=== PATIENT | female | born 1995 | race Two or more races ===

== ENCOUNTER 2019-04-29 21:50 | Emergency (ER) | payer MEDICAID, OTHER ==
[~2019-04-29] VITALS: Ht 167.6 cm; Wt 61.2 kg
[~2019-04-29 21:50] MED LIST: IBUP-1953 PO
--- NOTE | 2019-04-29 22:35 | NUR ---
Patient is AOx4, speaking in complete sentences, speech is clear. Able to follow /comprehend directions. Gait is stable. No cardiovascular distress noted. Rate/rhythm regular. No CP. No respiratory distress noted. Respirations even , unlabored, symmetrical chest rise. No adventitious sounds noted. Chief complaint: Patient comes in C/O SORETHROAT AFTER ACCIDENTALLY INGESTING DE[place]AYNE THAT FELL ON PIZZA TODAY. Denies Fever/Chills. No recent travel. +TONSILLECTOMY 3YR/O, +HEP C/NKDA. + ETOH/ +recreational drug use/ +5cigarettes per day. SAFETY Patient in bed, bed in lowest position. Siderails up x 2. Call light within reach. Will continue to monitor accordingly Pt denies fever chills headache dyspnea chest pain nausea vomiting diarrhea dysuria HEAD Denies hitting head, LOC, diplopia, worsening headache, balance problems vertigo/dizziness, difficulty concentrating, photophobia, phonophobia, nausea, vomiting HEART hx of HTN DM CAD, denies hx of chest pain or sensation of tightness, SOB, no report of copious diaphoresis, denies shooting pains into left arm or jaw
[2019-04-29 23:09] LABS: *URINE HCG, QUAL NEGATIVE (NEGATIVE)
--- NOTE | 2019-04-30 00:22 | NUR ---
Patient discharged to home in stable conditon. Written and verbal after care instructions given. Patient verbalizes understanding of instructions.
[2019-04-30 00:24] VITALS: BP 113/61
== END 2019-04-30 00:25 | disposition home or self-care (01) ==
LOC: ER 21:55
DX: J02.9 Acute pharyngitis, unspecified (principal); F17.200 Nicotine dependence, unspecified, uncomplicated; Z90.89 Acquired absence of other organs; Z79.1 Long term (current) use of non-steroidal anti-inflammatories (NSAID)
CPT/HCPCS: 70360; 71045; 84703; A4663